=== PATIENT | male | born 1990 | race Caucasian/White ===

== ENCOUNTER → 2016-12-25 | Outpatient (REF) | payer OTHER | LOC: M SFHCPLAZ 12:17 | PROVIDERS: ATTEND Nurse Practitioner Adult Health | DX: R30.9 Painful micturition, unspecified (principal) ==

== ENCOUNTER → 2017-03-26 | Outpatient (CLI) | payer OTHER, MEDICAID ==
--- NOTE | 2017-03-26 13:18 | REP ---
Clinical: Trauma. Injury. Technique: AP, lateral, bilateral oblique views right foot . Findings: The osseous structures and joint spaces are intact and normal. There is no evidence for acute fracture or dislocation. Surrounding soft tissues are unremarkable. No subcutaneous emphysema or radiodense foreign body. Impression: No acute fracture or dislocation. Signed by Ritchie Patrick MD 03/26/2017 01:10 P
== END ==
LOC: M LRY 12:32
PROVIDERS: ATTEND Family Medicine
DX: S99.911A Unspecified injury of right ankle, initial encounter (principal); X58.XXXA Exposure to other specified factors, initial encounter; Y92.9 Unspecified place or not applicable

== ENCOUNTER → 2017-07-15 | Outpatient (CLI) | payer OTHER, MEDICAID ==
[2017-07-15 09:18] LABS: BASO # 0.1 10^3/uL (0.0-0.2); BASO % 0.7 % (0.0-1.0); EOS # 0.4 10^3/uL (0.0-0.50); EOS % 5.3 % (0.0-3.0); IMMATURE GRANULOCYTE % 0.3 % (0-0); LYMPH # 1.8 10^3/uL (1.5-6.5); LYMPH % 24.6 % (24.0-44.0); MEAN CORPUSCULAR HEMOGLOBIN 28.7 pg (27.0-33.0); MEAN CORPUSCULAR HGB CONC 33.3 g/dl (32.0-36.5); MEAN CORPUSCULAR VOLUME 86.2 fl (80.0-96.0); MONO # 0.6 10^3/uL (0.0-0.8); MONO % 7.9 % (0.0-5.0); NEUTROPHILS # 4.5 10^3/uL (1.8-7.7); NEUTROPHILS % 61.2 % (36.0-66.0); PLATELET COUNT, AUTOMATED 278 10^3/uL (150-450); RED CELL DISTRIBUTION WIDTH 11.9 % (11.5-14.5); WHITE BLOOD COUNT 7.4 10^3/uL (4.0-10.0)
[2017-07-15 09:35] LABS: ANION GAP 7 MEQ/L (8-16); BLOOD UREA NITROGEN 12 MG/DL (7-18); CALCIUM LEVEL 9.2 MG/DL (8.5-10.1); CARBON DIOXIDE LEVEL 30 MEQ/L (21-32); CHLORIDE LEVEL 102 MEQ/L (98-107); CREATININE FOR GFR 0.64 MG/DL (0.70-1.30); FREE T4 1.19 NG/DL (0.76-1.46); GLOMERULAR FILTRATION RATE > 60.0 (>60); GLUCOSE, FASTING 85 MG/DL (70-105); POTASSIUM SERUM 4.2 MEQ/L (3.5-5.1); SODIUM LEVEL 139 MEQ/L (136-145); THYROXINE (T4) 10.2 UG/DL (4.5-12.0)
[2017-07-15 10:46] LABS: CORTISOL AM 9.5 UG/DL (4.3-22.4); PROLACTIN 31.2 NG/ML (2.1-17.7)
[2017-07-15 10:47] LABS: ESTRADIOL 28.8 PG/ML (<39.8); FOLLICLE STIMULATING HORMONE < 0.3 mIU/mL (1.4-18.1); LUTEINIZING HORMONE < 0.1 mIU/mL (1.5-9.3)
== END ==
LOC: M LAB 08:16
PROVIDERS: ATTEND Medical Genetics Clinical Genetics (M.D.)
DX: E23.0 Hypopituitarism (principal)

== ENCOUNTER → 2017-10-23 | Outpatient (CLI) | payer OTHER, MEDICAID ==
[2017-10-23 09:47] LABS: THYROXINE (T4) 9.5 UG/DL (4.5-12.0)
[2017-10-23 10:06] LABS: FOLLICLE STIMULATING HORMONE < 0.3 mIU/mL (1.4-18.1); LUTEINIZING HORMONE < 0.1 mIU/mL (1.5-9.3)
[2017-10-25 00:08] LABS: TESTOSTERONE FREE (DIRECT) 4.1 pg/mL (9.3-26.5)
== END ==
LOC: M LAB 08:15
DX: E23.6 Other disorders of pituitary gland (principal)

== ENCOUNTER → 2018-06-30 | Outpatient (CLI) | payer OTHER, MEDICAID ==
[2018-06-30 13:18] LABS: BASO # 0.1 10^3/uL (0.0-0.2); EOS # 0.8 10^3/uL (0.0-0.50); EOS % 11.3 % (0.0-3.0); HEMATOCRIT 45.5 % (42.0-52.0); HEMOGLOBIN 15.3 g/dl (13.5-17.5); IMMATURE GRANULOCYTE % 0.3 % (0-3.0); LYMPH # 1.8 10^3/uL (1.5-6.5); LYMPH % 25.3 % (24.0-44.0); MEAN CORPUSCULAR HEMOGLOBIN 29.3 pg (27.0-33.0); MEAN CORPUSCULAR HGB CONC 33.6 g/dl (32.0-36.5); MEAN CORPUSCULAR VOLUME 87.2 fl (80.0-96.0); MONO # 0.6 10^3/uL (0.0-0.8); NEUTROPHILS # 3.9 10^3/uL (1.8-7.7); NEUTROPHILS % 54.1 % (36.0-66.0); PLATELET COUNT, AUTOMATED 258 10^3/uL (150-450); RED BLOOD COUNT 5.22 10^6/uL (4.30-6.10); RED CELL DISTRIBUTION WIDTH 12.5 % (11.5-14.5); WHITE BLOOD COUNT 7.3 10^3/uL (4.0-10.0)
[2018-06-30 13:52] LABS: ALBUMIN 3.8 GM/DL (3.2-5.2); ALBUMIN/GLOBULIN RATIO 1.03 (1.00-1.93); ALKALINE PHOSPHATASE 97 U/L (45-117); ALT/SGPT 29 U/L (12-78); ANION GAP 6 MEQ/L (8-16); AST/SGOT 13 U/L (7-37); BILIRUBIN,TOTAL 0.6 MG/DL (0.2-1.0); BLOOD UREA NITROGEN 13 MG/DL (7-18); CALCIUM LEVEL 8.6 MG/DL (8.5-10.1); CARBON DIOXIDE LEVEL 30 MEQ/L (21-32); CHLORIDE LEVEL 102 MEQ/L (98-107); GLOMERULAR FILTRATION RATE > 60.0 (>60); GLUCOSE, FASTING 83 MG/DL (70-100); POTASSIUM SERUM 4.1 MEQ/L (3.5-5.1); SODIUM LEVEL 138 MEQ/L (136-145); TOTAL PROTEIN 7.5 GM/DL (6.4-8.2)
[2018-06-30 14:15] LABS: PROLACTIN 30.5 NG/ML (2.1-17.7); TOTAL 25(OH) VITAMIN D 68.6 NG/ML (30.0-100.0)
[2018-07-02 08:36] LABS: DEHYDROEPIANDROSTERONE SULFATE 191.5 ug/dL (138.5-475.2); SOMATOMEDIN-C INSULIN GROWTH 112 ng/mL (115-355)
[2018-07-02 08:36] LABS: INSULIN LEVEL 9.4 uIU/mL (2.6-24.9)
== END ==
LOC: M WUC 08:31
DX: Q87.1 Congenital malformation syndromes predominantly associated with short stature (principal); E66.09 Other obesity due to excess calories; E23.6 Other disorders of pituitary gland; F81.9 Developmental disorder of scholastic skills, unspecified; E29.1 Testicular hypofunction

== ENCOUNTER → 2018-10-28 | Outpatient (REF) | payer OTHER, MEDICAID | LOC: M LABDRAW1 09:02 | PROVIDERS: ATTEND Medical Genetics Clinical Genetics (M.D.) | DX: Q87.1 Congenital malformation syndromes predominantly associated with short stature (principal); E29.1 Testicular hypofunction ==

== ENCOUNTER → 2019-05-20 | Outpatient (REF) | payer OTHER, MEDICAID ==
[2019-05-20 13:19] LABS: FOLLICLE STIMULATING HORMONE < 0.3 mIU/mL (1.4-18.1); FREE T4 0.98 NG/DL (0.76-1.46); LUTEINIZING HORMONE < 0.1 mIU/mL (1.5-9.3); THYROXINE (T4) 9.1 UG/DL (4.5-12.0)
[2019-05-26 00:06] LABS: SOMATOMEDIN-C INSULIN GROWTH 123 ng/mL (98-282); TESTOSTERONE FREE (DIRECT) 4.1 pg/mL (9.3-26.5)
== END ==
LOC: M LABDRAW1 11:41
PROVIDERS: ATTEND Medical Genetics Clinical Genetics (M.D.)
DX: E66.09 Other obesity due to excess calories (principal); E23.6 Other disorders of pituitary gland; F81.9 Developmental disorder of scholastic skills, unspecified; E29.1 Testicular hypofunction; Q87.1 Congenital malformation syndromes predominantly associated with short stature

== ENCOUNTER 2019-09-07 09:08 | Emergency (ER) | payer OTHER, MEDICAID ==
[~2019-09-07] VITALS: Ht 177.8 cm; Wt 113.6 kg
[2019-09-07] MEDS ORDERED: CITA20TA6 (09:18)
[2019-09-07] MEDS ORDERED: LEVO330T (09:18)
--- NOTE | 2019-09-07 09:54 | REP ---
LEFT ANKLE SERIES: Four views of he left ankle were performed. There may be a small avulsion fracture at the distal end of the fibula. I see no other evidence of acute fracture or dislocation. The ankle mortise is anatomic. Electronically Signed by Isaac Mcdermott MD 09/07/2019 04:01 P
[2019-09-07] MEDS ORDERED: ROLLMIS8 XX (10:12)
--- NOTE | 2019-09-07 10:48 | REP ---
LEFT FOOT, FOUR VIEWS: There is no evidence of an acute fracture, dislocation or intrinsic bone disease. IMPRESSION: No fracture or dislocation. Electronically Signed by Isaac Mcdermott MD 09/07/2019 04:04 P
[2019-09-07 11:24] VITALS: BP 119/73
== END 2019-09-07 11:32 | disposition home or self-care (01) ==
LOC: M ED 09:08
DX: S82.832A Other fracture of upper and lower end of left fibula, initial encounter for closed fracture (principal); Q87.11 Prader-Willi syndrome; Z91.040 Latex allergy status; Z79.899 Other long term (current) drug therapy

== ENCOUNTER → 2019-11-16 | Outpatient (CLI) | payer OTHER, MEDICAID ==
[~2019-11-16] MED LIST: CITA20TA6; LEVO330T; ROLLMIS8 XX
[2019-11-16 10:48] LABS: HEMATOCRIT 47.8 % (42.0-52.0); HEMOGLOBIN 15.8 g/dl (13.5-17.5); MEAN CORPUSCULAR HEMOGLOBIN 28.7 pg (27.0-33.0); MEAN CORPUSCULAR HGB CONC 33.1 g/dl (32.0-36.5); MEAN CORPUSCULAR VOLUME 86.9 fl (80.0-96.0); PLATELET COUNT, AUTOMATED 280 10^3/uL (150-450); WHITE BLOOD COUNT 8.4 10^3/uL (4.0-10.0)
[2019-11-16 11:13] LABS: ALBUMIN 3.9 GM/DL (3.2-5.2); ALT/SGPT 32 U/L (12-78); BILIRUBIN,TOTAL 0.7 MG/DL (0.2-1.0); BLOOD UREA NITROGEN 14 MG/DL (7-18); CALCIUM LEVEL 8.9 MG/DL (8.5-10.1); CARBON DIOXIDE LEVEL 29 MEQ/L (21-32); CHLORIDE LEVEL 104 MEQ/L (98-107); CHOLESTEROL LEVEL 118 MG/DL (<200); CREATININE FOR GFR 0.73 MG/DL (0.70-1.30); GLOMERULAR FILTRATION RATE > 60.0 (>60); GLUCOSE, FASTING 73 MG/DL (70-100); HDL CHOLESTEROL 47 MG/DL (>40); LDL CHOLESTEROL 59 MG/DL (<100); NON-HDL-C 71 MG/DL; POTASSIUM SERUM 4.4 MEQ/L (3.5-5.1); SODIUM LEVEL 139 MEQ/L (136-145); TOTAL PROTEIN 7.4 GM/DL (6.4-8.2); TRIGLYCERIDES LEVEL 59 MG/DL (<150)
== END ==
LOC: M PLALAB 07:56
PROVIDERS: ATTEND Internal Medicine
DX: E66.9 Obesity, unspecified (principal)

== ENCOUNTER → 2020-06-15 | Outpatient (REF) | payer OTHER, MEDICAID ==
[2020-06-15 13:47] LABS: AMORPHOUS SEDIMENT LARGE (NEGATIVE); APPEARANCE, URINE CLOUDY (CLEAR); BACTERIA, URINE AUTO NEGATIVE (NEGATIVE); BILIRUBIN, URINE AUTO NEGATIVE (NEGATIVE); BLOOD, URINE BLOOD NEGATIVE (NEGATIVE); COLOR, URINE YELLOW (YELLOW); GLUCOSE, URINE (UA) AUTO NEGATIVE (NEGATIVE); KETONE, URINE AUTO NEGATIVE (NEGATIVE); LEUKOCYTE ESTERASE, URINE AUTO NEGATIVE (NEGATIVE); NITRITE, URINE AUTO NEGATIVE (NEGATIVE); PROTEIN, URINE AUTO NEGATIVE (NEGATIVE); RBC, URINE AUTO 1 /HPF (0-3); SPECIFIC GRAVITY URINE AUTO 1.018 (1.002-1.035); SQUAMOUS EPITHELIAL CELL UR AU 1 /HPF (0-6); UROBILINOGEN, URINE AUTO 0.2 mg/dL (0.0-2.0); WBC, URINE AUTO 0 /HPF (0-3)
== END ==
LOC: M SFHCPLAZ 12:51
PROVIDERS: ATTEND Internal Medicine
DX: R30.0 Dysuria (principal)

== ENCOUNTER → 2021-02-20 | Outpatient (CLI) | payer OTHER, MEDICAID ==
[2021-02-20 11:08] LABS: BASO # 0.1 10^3/uL (0.0-0.2); BASO % 0.8 % (0.0-1.0); EOS # 0.9 10^3/uL (0.0-0.5); EOS % 12.1 % (0.0-3.0); HEMATOCRIT 48.5 % (42.0-52.0); HEMOGLOBIN 16.3 g/dl (13.5-17.5); LYMPH # 1.9 10^3/uL (1.5-5.0); LYMPH % 26.9 % (24.0-44.0); MEAN CORPUSCULAR HEMOGLOBIN 29.7 pg (27.0-33.0); MEAN CORPUSCULAR HGB CONC 33.6 g/dl (32.0-36.5); MEAN CORPUSCULAR VOLUME 88.5 fl (80.0-96.0); MONO # 0.5 10^3/uL (0.0-0.8); MONO % 7.3 % (2.0-8.0); NEUTROPHILS # 3.7 10^3/uL (1.5-8.5); NEUTROPHILS % 52.6 % (36.0-66.0); PLATELET COUNT, AUTOMATED 249 10^3/uL (150-450); RED BLOOD COUNT 5.48 10^6/uL (4.30-6.10); WHITE BLOOD COUNT 7.1 10^3/uL (4.0-10.0)
[2021-02-20 11:23] LABS: HEMOGLOBIN A1c 5.2 %
[2021-02-20 11:41] LABS: ALT/SGPT 27 U/L (12-78); BILIRUBIN,TOTAL 0.5 MG/DL (0.2-1.0); BLOOD UREA NITROGEN 15 MG/DL (7-18); CALCIUM LEVEL 9.2 MG/DL (8.5-10.1); CARBON DIOXIDE LEVEL 31 MEQ/L (21-32); CHLORIDE LEVEL 104 MEQ/L (98-107); CREATININE FOR GFR 0.75 MG/DL (0.70-1.30); GLOMERULAR FILTRATION RATE > 60.0 (>60); GLUCOSE, FASTING 83 MG/DL (70-100); POTASSIUM SERUM 4.1 MEQ/L (3.5-5.1); SODIUM LEVEL 139 MEQ/L (136-145); THYROXINE (T4) 7.1 UG/DL (4.5-12.0); TOTAL PROTEIN 7.6 GM/DL (6.4-8.2)
[2021-02-20 11:42] LABS: TOTAL 25(OH) VITAMIN D 77.8 NG/ML (30.0-100.0)
[2021-02-20 11:43] LABS: FOLLICLE STIMULATING HORMONE < 0.3 mIU/mL (1.4-18.1); LUTEINIZING HORMONE < 0.1 mIU/mL (1.5-9.3); PROLACTIN 27.9 NG/ML (2.1-17.7)
== END ==
LOC: M PLALAB 08:14
PROVIDERS: ATTEND Medical Genetics Clinical Genetics (M.D.)
DX: Q87.11 Prader-Willi syndrome (principal); E29.1 Testicular hypofunction; E66.09 Other obesity due to excess calories

== ENCOUNTER → 2022-02-13 | Outpatient (CLI) | payer OTHER, MEDICAID ==
[~2022-02-13] MED LIST changes: +E-Z-GAS II EFFERVESCENT PACKET (SODIUM BICARB./CITRIC ACID/SIMETHICONE) As Ordered ONE; +E-Z-HD 98% w/w 340GM SUSP BTL As Ordered ONE; +E-Z-PAQUE 96% w/w SUSP 176GM BTL As Ordered ONE
== END ==
LOC: M RAD 07:32
PROVIDERS: ATTEND Internal Medicine
DX: R11.2 Nausea with vomiting, unspecified (principal); K22.2 Esophageal obstruction; K44.9 Diaphragmatic hernia without obstruction or gangrene

== ENCOUNTER → 2023-01-01 | Outpatient (CLI) | payer OTHER, MEDICAID ==
[~2023-01-01] MED LIST changes: -E-Z-GAS II EFFERVESCENT PACKET (SODIUM BICARB./CITRIC ACID/SIMETHICONE) As Ordered ONE; -E-Z-HD 98% w/w 340GM SUSP BTL As Ordered ONE; -E-Z-PAQUE 96% w/w SUSP 176GM BTL As Ordered ONE; -LEVO330T; +LEVO330T6
[2023-01-01 10:35] LABS: HEMATOCRIT 51.3 % (42.0-52.0); HEMOGLOBIN 17.2 g/dl (13.5-17.5); MEAN CORPUSCULAR HEMOGLOBIN 29.3 pg (27.0-33.0); MEAN CORPUSCULAR HGB CONC 33.5 g/dl (32.0-36.5); MEAN CORPUSCULAR VOLUME 87.4 fl (80.0-96.0); PLATELET COUNT, AUTOMATED 287 10^3/uL (150-450); RED BLOOD COUNT 5.87 10^6/uL (4.30-6.10); WHITE BLOOD COUNT 10.3 10^3/uL (4.0-10.0)
[2023-01-01 11:02] LABS: HEMOGLOBIN A1c 5.2 % (4.0-6.0)
[2023-01-01 11:09] LABS: ALBUMIN 3.8 G/DL (3.2-5.2); ALKALINE PHOSPHATASE 80 U/L (46-116); ALT/SGPT 44 U/L (7.0-40); AST/SGOT 23 U/L (<34); BILIRUBIN,TOTAL 0.5 MG/DL (0.3-1.2); BLOOD UREA NITROGEN 14 MG/DL (9-23); CALCIUM LEVEL 9.2 MG/DL (8.5-10.1); CARBON DIOXIDE LEVEL 29 MMOL/L (20-31); CHLORIDE LEVEL 103 MMOL/L (98-107); CHOLESTEROL LEVEL 99 MG/DL (<200); CHOLESTEROL RISK RATIO 2.69 (<5); CREATININE FOR GFR 0.81 MG/DL (0.70-1.30); GLOMERULAR FILTRATION RATE > 60.0 (>60); GLUCOSE, FASTING 89 MG/DL (60-100); HDL CHOLESTEROL 36.7 MG/DL (>40); LDL CHOLESTEROL 45.9 MG/DL (<100); NON-HDL-C 62.3 MG/DL; POTASSIUM SERUM 4.4 MMOL/L (3.5-5.1); SODIUM LEVEL 137 MMOL/L (136-145); TOTAL PROTEIN 6.9 G/DL (5.7-8.2); TRIGLYCERIDES LEVEL 82 MG/DL (<150)
== END ==
LOC: M PLALAB 08:10
PROVIDERS: ATTEND Nurse Practitioner Adult Health
DX: E66.9 Obesity, unspecified (principal)

== ENCOUNTER → 2023-01-01 | Outpatient (CLI) | payer OTHER, MEDICAID ==
[2023-01-01 10:58] LABS: HEMOGLOBIN A1c 5.2 % (4.0-6.0)
[2023-01-01 12:24] LABS: CHOLESTEROL LEVEL 99 MG/DL (<200); CHOLESTEROL RISK RATIO 2.64 (<5); HDL CHOLESTEROL 37.5 MG/DL (>40); LDL CHOLESTEROL 44.9 MG/DL (<100); NON-HDL-C 61.5 MG/DL; TRIGLYCERIDES LEVEL 83 MG/DL (<150)
[2023-01-01 12:25] LABS: FREE T4 0.98 NG/DL (0.89-1.76); LUTEINIZING HORMONE < 0.1 mIU/ML (1.5-9.3); THYROID STIMULATING HORMONE 2.153 uIU/ML (0.55-4.78); THYROXINE (T4) 9.7 UG/DL (4.5-10.9)
[2023-01-01 12:26] LABS: FOLLICLE STIMULATING HORMONE < 0.3 mIU/ML (1.4-18.1); PROLACTIN 24.17 NG/ML (2.1-17.7); TOTAL 25(OH) VITAMIN D 65.2 NG/ML (20.0-100.0)
[2023-01-03 09:10] LABS: SOMATOMEDIN-C INSULIN GROWTH 133 ng/mL (101-307)
== END ==
LOC: M PLALAB 08:07
PROVIDERS: ATTEND Pediatrics Pediatric Endocrinology
DX: E29.1 Testicular hypofunction (principal)

== ENCOUNTER → 2023-02-25 | Outpatient (CLI) | payer OTHER, MEDICAID | LOC: M WHC 11:19 | PROVIDERS: ATTEND Pediatrics Pediatric Endocrinology | DX: Q87.11 Prader-Willi syndrome (principal); E29.1 Testicular hypofunction; M85.851 Other specified disorders of bone density and structure, right thigh; M85.852 Other specified disorders of bone density and structure, left thigh ==

== ENCOUNTER → 2024-04-28 | Outpatient (CLI) | payer OTHER, MEDICAID ==
[2024-04-28 11:35] LABS: CHOLESTEROL RISK RATIO 2.79 (<5); HDL CHOLESTEROL 36.5 MG/DL (>40); LDL CHOLESTEROL 49.3 MG/DL (<100); NON-HDL-C 65.5 MG/DL
[2024-04-28 11:37] LABS: FREE T4 1.08 NG/DL (0.89-1.76)
[2024-04-28 11:38] LABS: THYROID STIMULATING HORMONE 2.828 uIU/ML (0.55-4.78); THYROXINE (T4) 8.1 UG/DL (4.5-10.9); TOTAL 25(OH) VITAMIN D 94.6 NG/ML (20.0-100.0)
[2024-04-28 12:00] LABS: HEMOGLOBIN A1c 5.2 % (4.0-6.0)
[2024-04-30 09:58] LABS: INSULIN LEVEL 17.3 uIU/mL (<=18.4)
[2024-05-02 15:48] LABS: TESTOSTERONE FREE (DIRECT) 127.6 pg/mL (35.0-155.0); TESTOSTERONE TOTAL FOR T&D 635 ng/dL (250-1100)
[2024-05-03 14:28] LABS: IGF 1 Z SCORE MALE -0.5 SD (-2.0 - +2.0); SOMATOMEDIN-C INSULIN GROWTH. 122 ng/mL (53-331)
== END ==
LOC: M PLALAB 08:08
PROVIDERS: ATTEND Pediatrics Pediatric Endocrinology
DX: Q87.11 Prader-Willi syndrome (principal); E29.1 Testicular hypofunction; Z68.35 Body mass index [BMI] 35.0-35.9, adult

== ENCOUNTER → 2025-01-12 | Outpatient (CLI) | payer OTHER, MEDICAID ==
[2025-01-12 14:35] LABS: CHOLESTEROL RISK RATIO 2.57 (<5); HDL CHOLESTEROL 41.9 MG/DL (>40); LDL CHOLESTEROL 52.1 MG/DL (<100); NON-HDL-C 66.1 MG/DL
[2025-01-12 14:39] LABS: THYROID STIMULATING HORMONE 2.346 uIU/ML (0.55-4.78); THYROXINE (T4) 8.6 UG/DL (4.5-10.9); TOTAL 25(OH) VITAMIN D 94.7 NG/ML (20.0-100.0)
[2025-01-12 14:42] LABS: FREE T4 1.22 NG/DL (0.89-1.76)
[2025-01-13 13:02] LABS: INSULIN LEVEL 9.8 uIU/mL (<=18.4)
== END ==
LOC: M PLALAB 09:25
PROVIDERS: ATTEND Medical Genetics Clinical Genetics (M.D.)
DX: E29.1 Testicular hypofunction (principal); Q87.11 Prader-Willi syndrome